=== PATIENT | male | born 1990 | race Two or more races ===

== ENCOUNTER 2016-08-27 13:33 | Emergency (ER) | payer SELFPAY ==
[~2016-08-27] VITALS: Ht 160 cm; Wt 68.0 kg
[2016-08-27 13:33] VITALS: BP 111/66
== END 2016-08-27 15:33 | disposition home or self-care (01) ==
LOC: ER 13:37
DX: S39.91XA Unspecified injury of abdomen, initial encounter (principal); R07.89 Other chest pain; W22.8XXA Striking against or struck by other objects, initial encounter; Y93.89 Activity, other specified; Y92.89 Other specified places as the place of occurrence of the external cause; Y99.8 Other external cause status
CPT/HCPCS: 71250; 74176

== ENCOUNTER 2017-01-03 20:29 | Emergency (ER) | payer OTHER ==
[~2017-01-03] VITALS: Ht 160 cm; Wt 68.0 kg
[2017-01-03 21:52] VITALS: BP 113/67
[2017-01-05 11:53] LABS: Hepatitis B Surface Antibody Positive
== END 2017-01-03 22:14 | disposition home or self-care (01) ==
LOC: ER 20:29
DX: Z77.21 Contact with and (suspected) exposure to potentially hazardous body fluids (principal)
CPT/HCPCS: 36415; 86703; 86706; 86803; 87340

== ENCOUNTER 2017-08-02 00:10 | Emergency (ER) | payer SELFPAY ==
[~2017-08-02] VITALS: Ht 160 cm; Wt 68.0 kg
[2017-08-02 00:35] VITALS: BP 117/66
== END 2017-08-02 02:39 | disposition home or self-care (01) ==
LOC: ER 00:10
DX: J02.9 Acute pharyngitis, unspecified (principal)